=== PATIENT | male | born 2000 | race Caucasian/White ===

== ENCOUNTER 2025-08-13 19:29 | Emergency (ER) | payer OTHER ==
[~2025-08-13] VITALS: Ht 177.8 cm; Wt 68.5 kg
[2025-08-13] MEDS ORDERED: DIPHTH,PERTUSS(ACELL),TET VAC 0.5 ML SYRINGE IM ONE (20:15)
[2025-08-13] MEDS ORDERED: AMOX TR-K CLV1 EAC1 PO (21:06)
[2025-08-13] MEDS ORDERED: TRAMADOL HCL50 MG PO (21:06)
[2025-08-13] MEDS ORDERED: TRAMADOL HCL 50 MG HOME.PACK PO ONE (21:15)
[2025-08-13] MEDS ORDERED: AMOXICILLIN/CLAVULANATE K 875 MG HOME.PACK PO ONE (21:15)
[2025-08-13 21:40] VITALS: BP 116/68
== END 2025-08-13 21:42 | disposition home or self-care (01) ==
LOC: ED 19:29
DX: S61.432A Puncture wound without foreign body of left hand, initial encounter (principal); W20.8XXA Other cause of strike by thrown, projected or falling object, initial encounter
CPT/HCPCS: 73130; 90471; 90715; 99283-25; A9270